=== PATIENT | male | born 1960 | race Hispanic/Latino ===

== ENCOUNTER 2017-03-06 20:24 | Emergency (ER) | payer OTHER ==
[2017-03-06 21:27] LABS: Red Blood Count TNR M/mm3 (3.65-5.03); White Blood Count TNR K/mm3 (4.5-11.0)
[2017-03-06 21:28] LABS: Hematocrit TNR % (35.5-45.6); Hemoglobin TNR gm/dl (11.8-15.2); Mean Corpuscular HGB Conc TNR % (32-34); Mean Corpuscular Hemoglobin TNR pg (28-32); Mean Corpuscular Volume TNR fl (84-94); Platelet Count TNR K/mm3 (140-440); Red Cell Distribution Width TNR % (13.2-15.2)
[2017-03-06 21:29] LABS: Basophils % (Auto) TNR % (0.0-1.8); Eosinophils % (Auto) TNR % (0.0-4.3)
[2017-03-06 21:31] LABS: Diff Status TNR; Mean Platelet Volume TNR fl (6-12)
[2017-03-06 21:43] LABS: Alanine Aminotransferase 38 units/L (7-56); Albumin 4.5 g/dL (3.9-5); Albumin/Globulin Ratio 1.2 %; Alkaline Phosphatase 63 units/L (35-129); BUN/Creatinine Ratio 16.66; Blood Urea Nitrogen 15 mg/dL (9-20); Calcium 9.7 mg/dL (8.4-10.2); Carbon Dioxide 24 mmol/L (22-30); Glucose 88 mg/dL (75-100); Sodium 133 mmol/L (137-145); Total Protein 8.2 g/dL (6.3-8.2)
[2017-03-06 21:44] LABS: Anion Gap 20 mmol/L; Chloride 93.8 mmol/L (98-107); Potassium 4.5 mmol/L (3.6-5.0)
[2017-03-06 21:54] LABS: Basophils % (Auto) 0.7 % (0.0-1.8); Eosinophils % (Auto) 2.5 % (0.0-4.3); Hematocrit 48.5 % (35.5-45.6); Hemoglobin 16.6 gm/dl (11.8-15.2); Mean Corpuscular HGB Conc 34 % (32-34); Mean Corpuscular Hemoglobin 33 pg (28-32); Mean Corpuscular Volume 98 fl (84-94); Platelet Count 147 K/mm3 (140-440); Red Blood Count 4.95 M/mm3 (3.65-5.03); Red Cell Distribution Width 13.8 % (13.2-15.2); White Blood Count 13.4 K/mm3 (4.5-11.0)
[2017-03-07] MEDS ORDERED: CLEOCIN PO ONE (00:10)
[2017-03-07] MEDS ORDERED: MOTRIN PO ONE (00:11)
[2017-03-07] MEDS ORDERED: MORPHINE IM ONE (00:12)
[2017-03-07] MEDS ORDERED: ZOFRAN ODT PO ONE (00:12)
--- NOTE | 2017-03-07 00:15 | Emergency Department Report ---
ED Lower Extremity HPI - General Chief Complaint: Extremity Injury, Lower Stated Complaint: LEFT FOOT INFECTION Time Seen by Provider: 03/07/17 00:09 Source: patient Mode of arrival: Ambulatory Limitations: Physical Limitation - History of Present Illness Initial Comments: 56-year-old male with past medical history of hypertension presenting to the emergency department complaining of left foot pain. Patient states he injects himself with methamphetamines and injected himself into the foot several days prior and now has redness and it swelling around the area. Patient denies: chest pain, shortness of breath, difficulty breathing, fevers/chills, abdominal pain, generalized body pain. Patient states the pain is located at the foot only. Complaint: foot injury -: Sudden, days(s) Injury: Foot: Left Place: street/outdoors Severity: moderate Severity scale (0 -10): 5 Improves With: nothing Worsens With: weight bearing - Related Data Previous Rx's Medication Instructions Recorded Last Taken Type Clindamycin [Clindamycin CAP] 450 mg PO Q8HR #40 capsule 03/07/17 Unknown Rx Ibuprofen [Motrin 800 MG tab] 800 mg PO Q8HR PRN #30 tablet 03/07/17 Unknown Rx traMADol [Ultram] 50 mg PO Q4HR PRN #15 tablet 03/07/17 Unknown Rx Allergies Allergy/AdvReac Type Severity Reaction Status Date / Time No Known Allergies Allergy Verified 03/06/17 20:42 ED Review of Systems ROS: Stated complaint: LEFT FOOT INFECTION Other details as noted in HPI Comment: All other systems reviewed and negative Musculoskeletal: other (left foot pain ) ED Past Medical Hx - Past Medical History Previous Medical History?: Yes Hx Hypertension: Yes Hx Heart Attack/AMI: Yes Additional medical history: hep c - Surgical History Past Surgical History?: Yes Additional Surgical History: abd GSw - Social History Smoking Status: Current Every Day Smoker Substance Use Type: Alcohol, Cocaine, Heroin, Methamphetamines - Medications Home Medications: Home Medications Medication Instructions Recorded Confirmed Last Taken Type Clindamycin [Clindamycin CAP] 450 mg PO Q8HR #40 capsule 03/07/17 Unknown Rx Ibuprofen [Motrin 800 MG tab] 800 mg PO Q8HR PRN #30 tablet 03/07/17 Unknown Rx traMADol [Ultram] 50 mg PO Q4HR PRN #15 tablet 03/07/17 Unknown Rx ED Physical Exam - General Limitations: Physical Limitation General appearance: alert, in no apparent distress - Head Head exam: Present: atraumatic, normocephalic - Eye Eye exam: Present: normal appearance - ENT ENT exam: Present: mucous membranes moist - Neck Neck exam: Present: normal inspection - Respiratory Respiratory exam: Present: normal lung sounds bilaterally. Absent: respiratory distress - Cardiovascular Cardiovascular Exam: Present: regular rate, normal rhythm. Absent: systolic murmur, diastolic murmur, rubs, gallop - GI/Abdominal GI/Abdominal exam: Present: soft, normal bowel sounds - Rectal Rectal exam: Present: deferred - Extremities Exam Extremities exam: Present: normal inspection, tenderness (to dorsal surface of left foot. 2+ DP BL ) - Back Exam Back exam: Present: normal inspection - Neurological Exam Neurological exam: Present: alert, oriented X3 - Psychiatric Psychiatric exam: Present: normal affect, normal mood - Skin Skin exam: Present: warm, dry, normal color, erythema (pt has eryhtyma with crusted ulceration on doral surface of left foot, 2cm x 2 cm, non draining , non flutuant, no evidence of abscess ). Absent: rash ED Course Vital Signs 03/06/17 20:29 Temperature 97.9 F Pulse Rate 94 H Respiratory 18 Rate Blood Pressure 141/98 O2 Sat by Pulse 99 Oximetry ED Lower Extremity MDM - Lab Data Result diagrams: 03/06/17 21:36 03/06/17 21:11 - Radiology Data Radiology results: image reviewed interpreted by me: negative for acute findings - Medical Decision Making 56-year-old male presenting to the emergency department with left foot cellulitis. No evidence of abscess. Foot xray for acute findings. Patient disabled DC home with oral antibitoics and pain control. Critical Care Time: No Critical care attestation.: If time is entered above; I have spent that time in minutes in the direct care of this critically ill patient, excluding procedure time. ED Disposition Clinical Impression: Cellulitis of left foot Disposition: DC-01 TO HOME OR SELFCARE Is pt being admited?: No Does the pt Need Aspirin: No Condition: Stable Instructions: Cellulitis (ED) Prescriptions: Clindamycin [Clindamycin CAP] 450 mg PO Q8HR #40 capsule Ibuprofen [Motrin 800 MG tab] 800 mg PO Q8HR PRN #30 tablet PRN Reason: Pain , Severe (7-10) traMADol [Ultram] 50 mg PO Q4HR PRN #15 tablet PRN Reason: Pain Referrals: PRIMARY CARE, [Primary Care Provider] - 3-5 Days CHAUNCEY ANTONIO MD [Staff Physician] - 24 Hours Forms: Work/School Release Form, Work/School Excuse Out Patient Time of Disposition: 00:22
[2017-03-07 00:26] VITALS: BP 135/87
--- NOTE | 2017-03-07 07:34 | XRay Report ---
Left foot 3 views: History: Redness and swelling. Findings: No significant articular abnormality. No fracture, periosteal reaction or lytic lesion. Impression: No acute bony findings.
== END 2017-03-07 00:26 | disposition home or self-care (01) ==
LOC: ED 20:24
DX: L03.116 Cellulitis of left lower limb (principal); I10 Essential (primary) hypertension; I25.2 Old myocardial infarction; F17.210 Nicotine dependence, cigarettes, uncomplicated; F14.10 Cocaine abuse, uncomplicated; F15.10 Other stimulant abuse, uncomplicated; F11.10 Opioid abuse, uncomplicated
CPT/HCPCS: 36415; 73630; 80053; 85025; 87040; 96372; 99284; J2270; Q0162